=== PATIENT | male | born 1975 | race Caucasian/White ===

== ENCOUNTER 2021-04-05 11:32 | Emergency (ER) | payer OTHER ==
[2021-04-05] MEDS ORDERED: Bupivacaine 0.5% 30 ML SDV INJECT ONE (11:51)
[2021-04-05] MEDS ORDERED: ceFAZolin 1 GM in Sodium Chloride 0.9% 50 ML IV ONE (11:57)
== END 2021-04-05 13:43 | disposition home or self-care (01) ==
LOC: DL.ED 11:32
DX: S61.311A Laceration without foreign body of left index finger with damage to nail, initial encounter (principal); Z88.8 Allergy status to other drugs, medicaments and biological substances; Z79.82 Long term (current) use of aspirin; Z86.16 Personal history of COVID-19; W23.0XXA Caught, crushed, jammed, or pinched between moving objects, initial encounter
CPT/HCPCS: 11760; 12001; 73120; 96365; 99283; J0690; J3490